=== PATIENT | male | born 1945 | race Caucasian/White ===

== ENCOUNTER 2020-11-04 14:57 | Inpatient (IN) | payer MEDICARE, BC ==
[~2020-11-04] VITALS: Ht 190.5 cm; Wt 98.0 kg
[2020-11-04] MEDS ORDERED: BAYER CHEWABLE81 MG PO (15:10)
[2020-11-04] MEDS ORDERED: VITAMIN D-32000 UNI2 PO (15:11)
[2020-11-04] MEDS ORDERED: BENADRYL25 MG PO (15:11)
[2020-11-04] MEDS ORDERED: COLACE100 MG PO (15:15)
[2020-11-04] MEDS ORDERED: PROSCAR5 MG PO (15:16)
[2020-11-04] MEDS ORDERED: DONEPEZIL HCL5 MG PO (15:16)
[2020-11-04] MEDS ORDERED: IMODIUM2 MG PO (15:17)
[2020-11-04] MEDS ORDERED: LIPITOR40 MG PO (15:18)
[2020-11-04] MEDS ORDERED: LISINOPRIL10 MG PO (15:18)
[2020-11-04] MEDS ORDERED: MIRALAX17 GM PO (15:19)
[2020-11-04] MEDS ORDERED: MILK OF MAGNESI30 ML PO (15:19)
[2020-11-04] MEDS ORDERED: IBUPROFEN200 MG PO (15:20)
[2020-11-04] MEDS ORDERED: MYLANTA / MAALO30 ML GT (15:20)
[2020-11-04] MEDS ORDERED: NIASPAN500 MG (15:21)
[2020-11-04] MEDS ORDERED: NYSTATIN1 PWD TOPICAL (15:22)
[2020-11-04] MEDS ORDERED: SEROQUEL25 MG PO (15:23)
[2020-11-04] MEDS ORDERED: PLAVIX75 MG PO (15:23)
[2020-11-04] MEDS ORDERED: SEROQUEL50 MG (15:24)
[2020-11-04] MEDS ORDERED: TRAZODONE HCL150 MG PO (15:25)
[2020-11-04] MEDS ORDERED: ACETAMINOPHEN500 M1 PO (15:26)
[2020-11-04] MEDS ORDERED: VITAMIN B-121000 MCG PO (15:27)
[2020-11-04] MEDS ORDERED: ZOFRAN4 MG PO (15:27)
[2020-11-04 17:57] VITALS: BP 169/90; BMI 26.9
--- NOTE | 2020-11-04 19:39 | NUR ---
PT ADMITTED TO [facility] TO DR. LOWE CARE FROM [place] IN [place] FOR AGGRESSIVE BEHAVIOR. PT IS CONFUSED AND WANDERING. DNR. COVID VACCINE COMPLETE. SARS-19 SWABBED PER ADMISSION PROTOCAL. NURSE OBTAINED VERBAL CONSULT FROM JEFFREY: ISI ROACH. AMBULATES. POOR HISTORIAN. ADMISSION WEIGHT: 215.6 VITAL SIGNS: T: 97.7, B/P: 169/90, P: 82, R: 22, O2 SAT: 98%.
[2020-11-04 20:00] VITALS: BP 173/92
--- NOTE | 2020-11-04 21:38 | NUR ---
B) Patient is alert and oriented to self, unaware of where he is or what he is doing, wanders to nurses station several times, anxious, restless, I) Administered scheduled medications as ordered, PRN Ativan 0.5 mg IM at 19:41 for anxiety, redirected as needed, R) Mediation compliant, difficult to redirect due to him not understanding the instructions, P) Continue plan of care.
[2020-11-05 06:48] LABS: BASOPHILS 0.2 % (0-2); EOSINOPHILS 2.2 % (0-7); HEMATOCRIT 43.9 % (42.0-54.0); HEMOGLOBIN 15.1 g/dL (13.5-17.5); IMMATURE GRANULOCYTES 0.4 % (0-5); LYMPHOCYTE ABS# 1.75 10x3/uL (1.32-3.57); LYMPHOCYTES 21.8 % (15-50); MCHC 34.4 g/dL (31.0-37.0); MCV 87.3 fL (80.0-100.0); MEAN PLATELET VOLUME 8.6 fL (7.4-10.4); MONOCYTES 8.1 % (2-11); NEUTROPHILS 67.3 % (40-80); PLATELET COUNT 111 10x3/uL (130-400); RBC 5.03 10x6/uL (4.20-6.10); RDW 13.3 % (11.5-14.5)
[2020-11-05 07:47] LABS: ALBUMIN 3.9 g/dL (3.4-5.0); ALKALINE PHOSPHATASE 85 U/L (30-120); ALT (SGPT) 25 U/L (10-68); BILIRUBIN - TOTAL 1.22 mg/dL (0.2-1.3); CALC OSMOLALITY 287 mosm/kg (275-300); CALCIUM 10.1 mg/dL (8.5-10.1); CARBON DIOXIDE 25.9 mmol/L (21.0-32.0); CHLORIDE - SERUM 107 mmol/L (98-107); CHOL - HDL RATIO 2.8 ratio (2.3-4.9); CHOLESTEROL, TOTAL 135 mg/dL (0-200); GLUCOSE 144 mg/dL (74-106); HDL CHOLESTEROL 49 mg/dL (32-96); LDL CHOLESTEROL 59 mg/dL (0-100); LDL-HDL RATIO 1.2 ratio (1.5-3.5); PROTEIN - SERUM 6.5 g/dL (6.4-8.2); SODIUM 142 mmol/L (136-145); THYROID STIMULATING HORMONE 2.54 uIU/mL (0.36-3.74); TRIGLYCERIDE 136 mg/dL (30-200); UREA NITROGEN 17 mg/dL (7-18); eGFR NON AFRICAN AMERICAN 78 mL/min (90-120)
--- NOTE | 2020-11-05 10:09 | NUR ---
SW ATTEMPTED TO CONTACT PT'S CONTACT FOR INFORMATION, ISI ROACH AT [phone] AND THERE WAS NO ANSWER.
[2020-11-05 11:03] VITALS: Ht 190.5 cm; Wt 98.0 kg
[2020-11-05 20:00] VITALS: BP 142/76
--- NOTE | 2020-11-05 20:49 | NUR ---
PT IS ALERT AND ORIENTED TO SELF ONLY. HE IS RECEIVED IN A CHAIR IN THE HALLWAY OUTSIDE THE NURSES STATION. HE IS AGGITATED WITH STAFF. PT IS PACING THE HALLWAY. UNABALE TO REDIRECT. ADMINISTERED PRN HALDOL 2 MG AND ATIVAN 0.5MG IM PER ORDERS. COMPLIANT WITH HS MEDICATIONS. MONITOR FOR SAFETY.
--- NOTE | 2020-11-05 21:15 | NUR ---
PT IS RESTING CALMLY IN HIS BED. NO SIGNS OF DISTRESS NOTED.
--- NOTE | 2020-11-05 22:24 | NUR ---
SPOKE TO PT DAUGHTER/POA. SHE RELATES THAT SHE RECEIVED A CALL THIS MORNING BUT WAS UNABLE TO ANSWER SHE WAS AT WORK. THERE WAS NO VOICEMAIL SO SHE IS UNCERTAIN OF WHAT WAS NEEDED. SHE INQUIRED ABOUT HER FATHERS CURRENT STATUS. UPDATED HER ON PRN MEDICATION THAT HE HAD RECEIVED AND THAT HE WAS CURRENTLY SITTING OUTSIDE THE NURSES STATION. SHE STATED "HIS OF 38 YEARS PASSED IN NOVEMBER OF LAST YEAR AND EVER SINCE HE HAD SEEMED TO TAKE A TURN FOR THE WORST." EDUCATED HER ON PHONE HOUR POLICY AND INFORMED HER TO CALL BACK SUNDAY AND ASK FOR CHIDI.
--- NOTE | 2020-11-06 09:16 | NUR ---
The lab called and said the patient's COVID test is negative.
--- NOTE | 2020-11-06 09:28 | NUR ---
The patient is very confused, he has told the medication nurse multiple times he is going home this am. 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 He has poor short term memory recall and poor insight into his situation. He ambulates, toilets, and feeds himself, but he requires a lot of assistance as he will pull his pants off and he will tracing lathe set up operator the middle of his room. He has not shown any aggression this am. Provide prescribed meds. The patient is compliant with meds. He is not currently having any hallucinations and has not tried to exit the doors. Continue POC.
[2020-11-06 09:51] VITALS: BP 135/57
--- NOTE | 2020-11-06 18:07 | NUR ---
Rec'd this am ambulatory in hallway. He takes his meds whole without diff. He is pleasant and cooperative. He cannot follow any directions. NO behaviors noted this shift.No c/o's.
[2020-11-06 20:00] VITALS: BP 135/75
--- NOTE | 2020-11-06 21:46 | NUR ---
PT IS ALERT AND ORIENTED TO SELF ONLY. HE IS RECEVIED IN THE HALLWAY OUTSIDE THE NURSES STATION SOCIALIZING WITH PEERS. SPEECH IS GARBLED. NO AGGRESSSION NOTED. ABLE TO AMBULATE WITHOUT ASSIST. PT COMPLAINS OF LEFT SHOULDER PAIN. ADMINISTERED PRN TYLENOL 500 MG. COMPLIANT WITH ALL MEDICATIONS. EASY TO REDIRECT. MONITOR FOR SAFETY.
[2020-11-07 02:00] LABS: BILIRUBIN NEGATIVE (NEGATIVE); KETONE NEGATIVE (NEGATIVE); NITRITE NEGATIVE (NEGATIVE); UROBILINOGEN NORMAL mg/dL (< 2)
[2020-11-07 08:00] VITALS: BP 160/76
--- NOTE | 2020-11-07 08:09 | NUR ---
The patient is confused, Miley Reyes T tried to explain to him that she needed to get his weight and it took about ten minutes for her to convince him that it would be ok to get his weight. He ambulates, toilets, and feeds himself. Provide prescribed meds. Monitor for medication compliance. He has not shown any aggression this am, but he does wander. He talks nonsensical. He has poor insight into his situation. Continue POC.
--- NOTE | 2020-11-07 19:35 | NUR ---
RECEIVED AT NURSES STATION. TALKING WITH THIS NURSE. CALM AND COOPERATIVE WITH CARE AND ASSESSMENT. VERY CONFUSED. NO SIGNS OF AGGRESSION. REDIRECT AND REORIENT NEEDED. SITTING IN HALLWAY SOCIALIZING WITH PEERS AT THIS TIME. CONTINUE PLAN OF CARE.
[2020-11-07 21:02] VITALS: BP 143/84
[2020-11-08 08:00] VITALS: BP 151/77
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
--- NOTE | 2020-11-08 17:39 | NUR ---
RECEIVED IN PATIENT ROOM. CALM AND COOPERATIVE WITH ASSESSMENT. WANDERING CONSTANTLY. AGGRESSIVE WITH SHOWER. VERY ANXIOUS AND AGITATED AFTER SHOWER. ACCUSING STAFF OF RAPING HIM IN THE SHOWER. REDIRECT AND REORIENT NEEDED. EATING AT THIS TIME. CONTINUE PLAN OF CARE.
--- NOTE | 2020-11-08 19:40 | NUR ---
RECEIVED IN HALLWAY. SITTING WITH PEERS SOIALIZING. CALM AND COOPERATIVE WITH CARE AND ASSESSMENT. VERY CONFUSED. NO SIGNS OF AGGRESSION. REDIRECT AND REORIENT NEEDED. CONTINUES TO SOCIALIZE WITH PEERS. CONTINUE PLAN OF CARE.
[2020-11-08 22:19] VITALS: BP 146/79
[2020-11-09 08:00] VITALS: BP 150/78
--- NOTE | 2020-11-09 08:30 | NUR ---
RECEIVED IN PATIENT ROOM. CALM AND COOPERATIVE WITH CARE AND ASSESSMENT. NO AGGRESSIVE BEHAVIOR. NO ACCUSATORY STATEMENTS MADE THIS MORNING. REDIRECT AND REORIENT NEEDED. EATING BREAKFAST AT THIS TIME. CONTINUE PLAN OF CARE.
--- NOTE | 2020-11-09 15:12 | PN ---
PATIENT:LEIA ROMAN MEDICAL RECORD: [id number] LOCATION:[facility] [address] ADMISSION DATE: 11/04/20 PROGRESS NOTE DATE OF SERVICE: 11/08/2020 SUBJECTIVE: The patient's case was discussed with staff. He has no new complaint. OBJECTIVE: The patient is not sleeping well. He is easily agitated and at times difficult to redirect. He has limited insight about his situation. He has not been aggressive, but I do not think that is related to any change in his underlying condition, but is rather associated with the skill with which the nursing staff is handling him and his almost constant redirection and observation. ASSESSMENT: Dementia. PLAN: I am going to treat the patient with a scheduled dose of Geodon. His long-term prognosis is guarded. TRANSINT:[id number] Voice Confirmation ID: [id number] DOCUMENT ID: [id number] TA LOWE MD at 1512 CC: [id number] DICTATION DATE: 11/08/20 162 SORTER LUMBER STRAIGHTENER: 11/08/20 2259 ADM IN [id number] [place] [address]
--- NOTE | 2020-11-09 19:20 | NUR ---
RECEIVED IN HALLWAY, SITTING IN A CHAIR SOCAILIZING WITH A PEER. VERY CONFUSED. CALM AND COOPERATIVE WITH CARE AND ASESSMENT. NO SIGNS OF AGGRESSION. REDIRECT AND REORIENT NEEDED. CONTINUES TO SIT CALMLY IN DAYROOM. CONTINUE PLAN OF CARE.
[2020-11-09 19:30] VITALS: BP 130/80
--- NOTE | 2020-11-10 08:39 | NUR ---
Nutrition Reassessment/Follow-up: Eating well. Diet: Regular PO intake: 94% avg x 9 meals Wt: 217# (11/07); 215# (11/04) Last BM: 11/09 No new labs Meds noted: vit D, vit B12 Est needs: 6019-1281 kcal/day (25-30 kcal/kg IBW) 90-105 g protein/day (1-1.2 g/kg IBW) 8846-3645 mL H2O/day (1 mL/kcal) or per MD -RD will follow up within 7 days.
--- NOTE | 2020-11-10 08:45 | NUR ---
RECEIVED IN PATIENT ROOM. WALKING AROUND. CALM AND COOPERATIVE WITH CARE AND ASSESSMENT. NO AGGRESSION. REDIRECT AND REORIENT NEEDED. EATING BREAKFAST AT THIS TIME. CONTINUE PLAN OF CARE.
[2020-11-10 09:19] VITALS: BP 131/82
--- NOTE | 2020-11-10 13:46 | PN ---
PATIENT:LEIA ROMAN MEDICAL RECORD: [id number] LOCATION:EDIL[facility] [address] ADMISSION DATE: 11/04/20 PROGRESS NOTE DATE OF SERVICE: 11/09/2020 SUBJECTIVE: The patient's case was discussed with staff. He has no new complaint. OBJECTIVE: The patient denies intent to harm himself or others. He is sleeping and eating well. ASSESSMENT: Dementia. PLAN: The patient will be maintained on current medicines, which I have reviewed. At this point, he does not appear to be excessively sedated. TRANSINT:[id number] Voice Confirmation ID: [id number] DOCUMENT ID: [id number] TA LOWE MD at 1346 CC: [id number] DICTATION DATE: 11/09/20 1547 CENTRIFUGAL EXTRACTOR OPERATOR: 11/09/20 221 ADM IN [facility] [address] [place] [address]
[2020-11-10 21:30] VITALS: BP 165/81
--- NOTE | 2020-11-10 21:56 | NUR ---
ALERT AND ORIENTED TO SELF ONLY. HAS POOR INSIGHT INTO HIS SITUATION. HE IS ABLE TO AMBULATE WITHOUT ASSIST. HE IS VERY CONFUSED AND CANNOT FOLLOW SIMPLE DIRECTIONS. HE PACES AROUND THE HALLS AIMLESSLY. COMPLIANT WITH ALL MEDICATIONS. MONITOR FOR SAFETY.
[2020-11-11 08:00] VITALS: BP 157/87
--- NOTE | 2020-11-11 10:58 | PN ---
PATIENT:LEIA ROMAN MEDICAL RECORD: [id number] LOCATION:[facility] [address] ADMISSION DATE: 11/04/20 PROGRESS NOTE DATE OF SERVICE: 11/10/2020 SUBJECTIVE: The patient's case was discussed with staff. He has no new complaint. OBJECTIVE: The patient is in good behavioral control. He is quite impaired cognitively, but has not been aggressive in any particular way. ASSESSMENT: Dementia. PLAN: Current medicines and therapies have been reviewed. I am going to increase the patient's Klonopin slightly. TRANSINT:[id number] Voice Confirmation ID: [id number] DOCUMENT ID: [id number] TA LOWE MD at 1058 CC: [id number] DICTATION DATE: 11/10/20 152 CRITICAL CARE TECHNICIAN: 11/10/20 1527 ADM IN [id number] [place] [address]
--- NOTE | 2020-11-11 12:25 | NUR ---
PT CONTINUES TO WANDER AROUND THE UNIT. PT IS DIFFICULT TO REDIRECT DUE TO INABILITY TO UNDERSTAND EDUCATION. PT SHOWS NO INSIGHT OR RETAINING OF EDUCTION OR REDIRECTION. PT SEEMS VERY TIRED BUT WILL NOT STAY IN ROOM. NO AGGRESSION NOTED. MEDICATION GIVEN ORDERED. WILL CONTINUE TO MONITOR AND CONTINUE WITH PLAN OF CARE.
[2020-11-11 20:07] VITALS: BP 156/77
--- NOTE | 2020-11-11 21:19 | NUR ---
PT IS ALERT AND ORIENTED TO SELF ONLY. POOR INSIGHT INTO SITUATION. OBSERVED PACING THE HALLS AND ATTEMPTS TO ENTER OTHER PATIENTS ROOMS. PARANOID OF STAFF RELATING THAT HE DOESNT WISH TO HAVE STAFF DO THINGS TO HIM WHILE HE SLEEPS. NEEDED MUCH ENCOURAGEMENT TO OBTAIN VITALS SIGNS. STATES "YOUR GOING TO CUT MY FINGER OFF WITH THAT". ADMINISTERED PRN ATIVAN 0.5 MG PO PER ORDERS. COMPLIANT WITH ALL MEDICATIONS. DIFFICULT TO REDIRECT. MONITOR FOR SAFETY.
--- NOTE | 2020-11-11 22:00 | NUR ---
PT RESTING CALMLY IN BED WITH EYES OPEN. NO SIGNS OF DISTRESS NOTED. WILL CONTINUE TO MONITOR.
--- NOTE | 2020-11-12 15:20 | NUR ---
Rec'd patient this am ambulatory in [facility]. Night staff state that he is sleeping very little and we offer during dayshift for him to lie down but he will lay for about 10 minutes and then he is up. His eyes are very tired looking and very red. He showed 1 episode of aggression this morning when staff were trying to redirect him and have him to sit down and his eyes became larger and he mumbled something to the fact of he "can and will when she leaves" and then was redirected to a chair by the nurse. He has displayed no paranoia behavior this shift. He paces and tries to unlock doors and attempts to go into rooms and is very difficult to redirect. He has very poor insight,,memory and recall. Staff attempts redirection and positive feedback daily for his needs.
[2020-11-12 20:00] VITALS: BP 142/80
--- NOTE | 2020-11-12 22:35 | NUR ---
PATIENT WANDERING AROUND HALLS AND TRYINT TO EXIT SEEK AT THE DOUBLE DOORS BY REHAB. UNIT. AFTER NUMEROUS ATTEMPTS TO REDIRECT PATIENT TO ROOM WITH DIFFICULTY UNDERSTANDING WHAT WE WERE TRYING TO GET HIM TO DO, HALDOL 2 MG PO WAS GIVEN.
[2020-11-13 08:00] VITALS: BP 118/54
--- NOTE | 2020-11-13 09:06 | NUR ---
The patient is awake and he is pleasant and calm, he has poor insight into his situation, he does not know where he is and he does not know the time of day, he is confused, he talks, but it is nonsensical and he says he wants to get out and go to work. Provide prescribed meds. The patient is compliant with meds. He has not shown any aggression. Continue POC.
--- NOTE | 2020-11-13 22:34 | NUR ---
RECEIVED PATIENT ON NURSING UNIT, AT THE BEGINNING OF THE SHIFT HE SEEMED PARANOID AND MODERATELY AGITATED, HE INTIALLY REFUSED HIS MEDS THEN HE TOOK THEM AND WENT TO BED. WILL FOLLOW POC
--- NOTE | 2020-11-14 17:10 | NUR ---
RECEIVED IN HALLWAY OUTSIDE OF NURSES STATION. WANDERING INTO OTHER PATIENTS ROOMS. VERY CONFUSED. RAMBLING AND NOT MAKING ANY SENSE. BECOMES AGITATED WITH REDIRECTION AT TIMES. REFUSED VITAL SIGNS, REFUSED MEDICATIONS, REFUSED TO EAT. PATIENT STATES HIS STOMACH DOESNT WORK AND THAT CANT BE HELPED. REDIRECT AND REORIENT NEEDED. SITTING IN HALLWAY SOCIALIZING WITH OTHER PATIENTS AT THIS TIME. CONTINUE PLAN OF CARE.
--- NOTE | 2020-11-14 20:04 | NUR ---
RECEIVED IN HALLWAY. SITTING IN A CHAIR SOCAILIZING WITH A PEER. VERY CONFUSED. CALM AND COOPERATIVE WITH CARE AND ASSESSMENT. UNABLE TO FOLLOW SIMPLE DIRECTIONS. NO SIGNS OF AGGRESSION. REDIRECT AND REORIENT NEEDED. CONTINUES TO SIT CALMLY IN HALLWAY. CONTINUE PLAN OF CARE.
[2020-11-14 20:47] VITALS: BP 133/97
--- NOTE | 2020-11-15 09:00 | NUR ---
REC'D PT IN HALLWAY BY NURSES STATION. WANDERING INTO OTHER PTS ROOMS. PT IS VERY CONFUSED. RAMBLING AND NOT MAKING ANY SENSE. PT BECOMES AGITATED WITH REDIRECTION AT TIMES. ASSESSMENT COMPLETED. PRESCRIBED MEDS PROVIDED ORDERED. MED COMPLIANT. FALL PRECAUTIONS IN PLACE. WILL CPOC.
--- NOTE | 2020-11-15 15:12 | PN ---
PATIENT:LEIA ROMAN MEDICAL RECORD: [id number] LOCATION:[facility] [address] ADMISSION DATE: 11/04/20 PROGRESS NOTE DATE OF SERVICE: 11/11/2020 SUBJECTIVE: The patient's case was discussed with staff. He has no new complaint. OBJECTIVE: The patient is difficult to redirect. He is having some problems following simple commands. Unfortunately, his dementia is quite advanced despite his age. He will be maintained on current medications. He did sleep better last night than the night before. TRANSINT:[id number] Voice Confirmation ID: [id number] DOCUMENT ID: [id number] TA LOWE MD at 1512 CC: [id number] DICTATION DATE: 11/11/20 1632 MANAGER INVESTIGATIONS: 11/11/20 1653 ADM IN [facility] [address] [place] [address]
--- NOTE | 2020-11-15 19:40 | NUR ---
RECEIVED IN HALLWAY. SITTING IN A CHAIR SOCIALIZING WITH PEERS. VERY CONFUSED. REFUSED VITALS FROM [facility]. UNABLE TO UNDERSTAND SIMPLE INSTRUCTIONS. NO SIGNS OF AGGRESSION. REDIRECT AND REORIENT NEEDED. CONTINUES TO SOCIALIZE WITH PEERS. CONTINUE PLAN OF CARE.
[2020-11-15 20:17] VITALS: BP 139/83
[2020-11-16 08:00] VITALS: BP 132/74
[2020-11-16 08:34] LABS: ANION GAP 12.8 mmol/L (8-16); CALCIUM 10.5 mg/dL (8.5-10.1); CARBON DIOXIDE 27.2 mmol/L (21.0-32.0); CREATININE - SERUM 1.1 mg/dL (0.6-1.3)
--- NOTE | 2020-11-16 14:08 | PN ---
PATIENT:LEIA ROMAN MEDICAL RECORD: [id number] LOCATION:[facility] [address] ADMISSION DATE: 11/04/20 PROGRESS NOTE DATE OF SERVICE: 11/15/2020 SUBJECTIVE: The patient's case was discussed with staff. He has no new complaint. OBJECTIVE: The patient is sleeping reasonably well and has not been significantly agitated today. ASSESSMENT: Dementia. PLAN: The patient's current medicines have been reviewed and will be maintained. I am going to increase the dose of his Aricept slightly. TRANSINT:[id number] Voice Confirmation ID: [id number] DOCUMENT ID: [id number] TA LOWE MD at 1408 CC: [id number] DICTATION DATE: 11/15/20 1549 COMPUTER LANGUAGE CODER: 11/15/20 2317 ADM IN [facility] [address] [place] [address]
--- NOTE | 2020-11-16 14:08 | PN ---
PATIENT:LEIA ROMAN MEDICAL RECORD: [id number] LOCATION:[facility] [address] ADMISSION DATE: 11/04/20 PROGRESS NOTE DATE OF SERVICE: 11/15/2020 SUBJECTIVE: The patient's case was discussed with staff. He has no new complaint. OBJECTIVE: The patient denies intent to harm himself or others. He is tolerating his medicines well. ASSESSMENT: Dementia. PLAN: Current medicines have been reviewed. I am going to increase the dose of his Aricept slightly. TRANSINT:[id number] Voice Confirmation ID: [id number] DOCUMENT ID: [id number] TA LOWE MD at 1408 CC: [id number] DICTATION DATE: 11/15/20 1554 OCCASIONAL CAREGIVER: 11/15/20 2304 ADM IN [id number] [place] [address]
--- NOTE | 2020-11-16 17:27 | NUR ---
RECEIVED PATIENT IN HALLWAY BY NURSES STATION. CALM AND COOPERATIVE WITH ASSESSMENT AT THIS TIME. PRESCRIBED MEDICATIONS PROVIDED ORDERED. MED COMPLIANT AT THIS TIME. PATIENT CAN BECOME EASILY AGITATED UPON REDIRECTION. REDIRECT AND REORIENT NEEDED. WILL CONTINUE PLAN OF CARE.
[2020-11-16 20:00] VITALS: BP 151/83
--- NOTE | 2020-11-16 20:04 | NUR ---
RECEIVED IN BEDROOM. RESTING IN BED WITH EYES OPEN. VERY CONFUSED. CALM AND COOPERATIVE WITH CARE AND ASSESSMENT. UNABLE TO UNDERSTAND SIMPLE DIRECTIONS. NO SIGNS OF AGGRESSION. REDIRECT AND REORIENT NEEDED. CONTINUES TO BE CALM AND COOPERATIVE. CONTINUE PLAN OF CARE.
[2020-11-17 07:59] VITALS: BP 156/73
--- NOTE | 2020-11-17 08:27 | PN ---
PATIENT:LEIA ROMAN MEDICAL RECORD: [id number] LOCATION:[facility] [address] ADMISSION DATE: 11/04/20 PROGRESS NOTE DATE OF SERVICE: 11/16/2020 SUBJECTIVE: The patient's case was discussed with staff. He has no new complaint. OBJECTIVE: The patient denies intent to harm himself or others. He is participating in treatment. He has poor insight about his situation. ASSESSMENT: Dementia. PLAN: The patient will have his gabapentin increased to 100 mg twice daily. I am going to reduce the Klonopin slightly. TRANSINT:[id number] Voice Confirmation ID: [id number] DOCUMENT ID: [id number] TA LOWE MD at 0827 CC: [id number] DICTATION DATE: 11/16/20 1535 AUTO BODY BUILDER APPRENTICE: 11/16/20 2259 ADM IN [address] [place] [address]
--- NOTE | 2020-11-17 08:33 | NUR ---
PT DAUGHTER CALLED WITH [employer] AND WANTED TO SPEAK WITH SOMEONE ABOUT WHAT WAS GOING ON, WHEN HE WAS GOING TO BE ABLE TO LEAVE. NURSE STATED SHE WAS WELCOME TO SPEAK WITH HUMIDIFIER MAINTENANCE WORKER ABOUT DISCHARGING PLANNING. NURSE TRANSFERRED HER TO HUMIDIFIER MAINTENANCE WORKER OFFICE. HUMIDIFIER MAINTENANCE WORKER CALLED STATING FOR PT TO CALL HIS DAUGHTER AFTER BEING UNABLE TO DO SO THIS WEEK. OR LACK OF GETTING AHOLD OF HIM. STAFF MANAGED TO GET PT TO SPEAK WITH DAUGHTER. HE DID NOT UNDERSTAND WHY HE NEEDED TO TALK ON THE PHONE. HE STATED THEY SAID NO PHONE CALLS. PT DID SPEAK WITH HIS DAUGHTER.
--- NOTE | 2020-11-17 10:37 | NUR ---
SW SPOKE TO PT'S DTR, ISI, TO DISCUSS PT'S CONDITION AND BEHAVIORS ON THE UNIT. ISI VOICED CONCERNS OF NOT GETTING TO SPEAK TO HER DAD IN THE EVENING TIME AND NOT GETTING REPORT ON HIS CONDITION. SW GAVE DTR NURSING UNIT NUMBER AND THE BEST TIMES TO CALL HER DAD AND SW ALSO EXPRESSED SHE CAN CALL FOR AN UPDATE AT ANYTIME. ISI VOICED UNDERSTANDING AND APPRECIATION FOR THE CALL.
--- NOTE | 2020-11-17 10:44 | NUR ---
Nutrition Re-Assessment Diet: Regular PO intake: ~46% average x last 9 meals. Varied 0-100%. She appears to have refused several meals on 11/14/20. She ate 100% x 3 meals yesterday. Last BM: 11/09/20 x 8 days now Wt: 217# (11/07/20); Admit Wt: 215# (11/04/20) Meds noted: micro-k, lasix Labs noted: Glu 134(H) Estimated nutrition needs: 1975-2450kcal (20-25kcal/kg), 79-99gms protein (0.8-1gm/kg), 1975-2450mL fluid (or per MD) Nutrition diagnosis: Inadequate energy intake r/t AMS AEB PO intake average <65% over the past 9 meals (varied 0-100%). Goal: -PO intake =/>75% meals and snacks -Meet fluid needs -Weight trend stable DHS -Glucose to trend near WNL Recommendations: -Continue current diet. Will continue to honor food preferences within diet restrictions. -Recommend offer oral nutrition supplements if PO intake <65% of meals. -RD will follow-up within 7 days.
--- NOTE | 2020-11-17 15:11 | NUR ---
Rec'd patient this am ambulatory in [facility]. He is A/O times one to person. He is very confused and impaired judgement and decision making skilles. He cannot follow simplet commands. He mumbles and carries on a conversation that is unknown to the gate shear operator. He has slept this afternoon and has not participated in any group/ activity. He has to be directed and redirected often. Will continue to encourage him to participate.
[2020-11-17 20:00] VITALS: BP 130/81
--- NOTE | 2020-11-18 01:42 | NUR ---
RECEIVED PATIENT ON UNIT, HE IS VERY CONFUSED AND DOES NOT COMPREHEND ANYTHING THAT IS SAID TO HIM. HE IS VERY LABILE AND BECOMES AGITATED VERY QUICKLY, HE WANDERS AROUND THE UNIT. HE INTIALLY REFUSED HIS MEDS BUT WAITED FOR HIM TO CALM DOWN THEN HE TOOK HIS MEDS. WILL FOLLOW POC
[2020-11-18 08:50] VITALS: BP 124/68
--- NOTE | 2020-11-18 08:54 | PN ---
PATIENT:LEIA ROMAN MEDICAL RECORD: [id number] LOCATION:[facility] [address] ADMISSION DATE: 11/04/20 PROGRESS NOTE DATE OF SERVICE: 11/17/2020 SUBJECTIVE: The patient's case was discussed with staff. He has no new complaint. OBJECTIVE: The patient is disorganized with poor insight about his situation. ASSESSMENT: Dementia. PLAN: Supportive and educational interventions were made. The patient has not been sleeping well despite the medications he is taking at bedtime. I am going to increase the dose of his bedtime Neurontin to see if that helps. TRANSINT:[id number] Voice Confirmation ID: [id number] DOCUMENT ID: [id number] TA LOWE MD at 0854 CC: [id number] DICTATION DATE: 11/17/20 170 FIRMWARE ENGINEER: 11/18/20 0116 ADM IN [facility] [address] [id number]
[2020-11-18 10:14] VITALS: BP 124/68
--- NOTE | 2020-11-18 15:37 | NUR ---
Rec'd patient is am sitting out in the hallway. He is Alert, disorientated to place, time, and situation. He is very confused and will easily become aggressive and aggitated when he feels staff is pushing him to do a task or answer an specific questions. He cannot follow simple directions and has impaired decision making. He will take his meds crushed or whole in ice cream most of the time but has refused all meds. He did attend and participate in goup meeting and activities this am. He is difficult to direct or redirect.
[2020-11-18 20:00] VITALS: BP 140/76
--- NOTE | 2020-11-19 02:58 | NUR ---
B) Patient is alert and oriented to self, social with staff and other patients, wanders at times, calm and cooperative. I) Administered scheduled medications as ordered, monitored for safety R) Mediation compliant, sleeping now quietly in his bed, P) Continue plan of care.
[2020-11-19 11:37] VITALS: BP 138/90
--- NOTE | 2020-11-19 12:47 | NUR ---
PT IN ROOM AT THIS TIME. PT ATE LUNCH. CONFUSION NOTED. ALERT TO SELF ONLY. AMBULATES. CAN NOT MAKE ALL NEEDS KNOWN. PT IS SOCIAL WITH PEERS AND STAFF. COMPLIANT WITH MEDS, VITALS AND ASSESSMENTS. PT WANDERS AT TIMES. REDIRECT AND REORIENT NEEDED. NO C/O OF PAIN NOTED. PT CONTS ON DROPELT ISOLATION AWAITING SARS-19 RESULTS. BED ALARM IN PLACE AND ACTIVE. WILL CONT PLAN OF CARE.
[2020-11-19 20:00] VITALS: BP 133/76
--- NOTE | 2020-11-19 21:30 | NUR ---
PT IS ALERT AND ORIENTED TO SELF ONLY. PT CALM AND COOPERATIVE WITH STAFF. SOCIAL WITH PEERS. COMPLIANT WITH ALL MEDICATIONS. EASY TO REDIRECT. PT WAS OFFERED OPTION OF AM OR PM SHOWER AND HE CHOSE TO TAKE A SHOWER IN THE MORNING. NO AGGRESSION NOTED. MONITOR FOR SAFETY.
--- NOTE | 2020-11-20 07:42 | NUR ---
The patient is sitting in the vu he is conversing, but he is nonsensical. He ambulates and feeds himself. He toilets in the sink in someone elses bathroom, he will put his underwear on over his pants. He has poor insight into his situation. He has not shown any aggression, but it is difficult to direct him. Provide prescribed meds. Continue POC.
[2020-11-20 08:14] VITALS: BP 124/71
[2020-11-20 20:00] VITALS: BP 147/75
--- NOTE | 2020-11-20 22:55 | NUR ---
PT IS ALERT AND ORIENTED TO SELF ONLY. CALM AND COOPERATIVE WITH STAFF. FOLLOWS SIMPLE COMMANDS. COMPLIANT WITH ALL MEDICATIONS AND CARE. UNSTEADY GAIT. EASY TO REDIRECT. MONITOR FOR SAFETY.
--- NOTE | 2020-11-21 08:22 | NUR ---
The patient is awake and he is pleasant, he walked a little bit with another patient and it made the other patient happy, but then he walked away and shut the door. Staff checked on him and he is making his bed. He tries to converse, but it is nonsensical. He has poor insight into his situation. He ambulates, toilets, and feeds himself. He is unsteady and he realizes it, he uses the hand rail. Provide prescribed meds. The patient is compliant with meds. Continue POC.
[2020-11-21 09:00] VITALS: BP 136/75
--- NOTE | 2020-11-21 19:28 | NUR ---
RECEIVED IN HALLWAY OUTSIDE OF NURSES STATION. SOCIALIZING WITH PEERS. VERY CONFUSED. CALM AND COOPERATIVE WITH CARE AND ASSESSMENT. NO SIGNS OF AGGRESSION. REDIRECT AND REORIENT NEEDED. CONTINUES TO SOCAILIZE WITH PEERS IN HALLWAY. CONTINUE PLAN OF CARE.
[2020-11-21 21:35] VITALS: BP 126/81
[2020-11-22 10:31] VITALS: BP 122/60
--- NOTE | 2020-11-22 13:41 | PN ---
PATIENT:LEIA ROMAN MEDICAL RECORD: [id number] LOCATION:[facility] [address] ADMISSION DATE: 11/04/20 PROGRESS NOTE DATE OF SERVICE: 11/18/2020 SUBJECTIVE: The patient's case was discussed with staff. He has no new complaint. OBJECTIVE: The patient denies intent to harm himself or others. He is not sleeping well. He is eating well. ASSESSMENT: Dementia. PLAN: The patient will be maintained on current medications with the exception of the Klonopin, which will be increased slightly. TRANSINT:[id number] Voice Confirmation ID: [id number] DOCUMENT ID: [id number] TA LOWE MD at 1341 CC: [id number] DICTATION DATE: 11/18/202012 FEDERAL JUDICIAL LAW CLERK: 11/18/20 2133 ADM IN [facility] [address] [place] [address]
--- NOTE | 2020-11-22 17:45 | NUR ---
RECEIVED IN PATIENT ROOM. SITTING ON SIDE OF BED. CALM AND COOPERATIVE WITH CARE AND ASSESSMENT. NO AGGRESSIVE BEHAVIOR. STILL WANDERS AROUND UNIT. CONFUSED. REDIRECT AND REORIENT NEEDED. EATING DINNER AT THIS TIME. CONTINUE PLAN OF CARE.
--- NOTE | 2020-11-22 21:58 | NUR ---
RECEIVED IN HALLWAY OUTISIDE OF NURSES STATION. SOCIALIZING WITH PEERS. VERY CONFUSED. CALM AND COOPERATIVE WITH CARE AND ASSESSMENT. NO SIGNS OF AGGRESSION. REDIRECT AND REORIENT NEEDED. RESTING IN BED WITH EYES CLOSED AT THIS TIME. CONTINUE PLAN OF CARE.
[2020-11-22 22:55] VITALS: BP 131/60
[2020-11-23 08:00] VITALS: BP 143/76
--- NOTE | 2020-11-23 13:17 | PN ---
PATIENT:LEIA ROMAN MEDICAL RECORD: [id number] LOCATION:[facility] [address] ADMISSION DATE: 11/04/20 PROGRESS NOTE DATE OF SERVICE: 11/22/2020 SUBJECTIVE: The patient's case was discussed with staff. He has no new complaint. OBJECTIVE: The patient denies intent to harm himself or others. He is tolerating his medicines well. ASSESSMENT: Dementia. PLAN: Current medicines have been reviewed. I am going to increase his scheduled dose of gabapentin slightly. TRANSINT:[id number] Voice Confirmation ID: [id number] DOCUMENT ID: [id number] TA LOWE MD at 1317 CC: [id number] DICTATION DATE: 11/22/20 1615 RECONNAISSANCE CREWMEMBER: 11/22/20 1738 ADM IN [place] [id number] [place] [address]
[2020-11-23 16:00] LABS: SARS-CoV-2 ANTIGEN NEGATIVE- SARS-COV-2 (NEGATIVE)
--- NOTE | 2020-11-23 16:15 | NUR ---
PT WILL DISCHARGE BACK TO [facility]. SW ATTEMPTED PHONE CALL TO ISI MORALES, AND PHONE WENT TO BUSY ITZEL. PT'S FACILITY WILL MAKE FOLLOW UP APPOINTMENT FOR THREE WEEKS DUE TO THEM WANTING TO MAKE SURE HE HAS THE TRANSPORTATION NEEDED. MEDICATIONS WILL BE CALLED IN TO [facility] PER FACILITY REQUEST.
[2020-11-23] MEDS ORDERED: DONEPEZIL HCL10 MG PO (16:26)
[2020-11-23] MEDS ORDERED: TRAZODONE HCL100 MG PO (16:27)
[2020-11-23] MEDS ORDERED: GEODON20 MG PO (16:27)
[2020-11-23] MEDS ORDERED: NEURONTIN 300300 MG PO (16:27)
[2020-11-23] MEDS ORDERED: GABAPENTIN100 MG PO (16:27)
--- NOTE | 2020-11-23 17:50 | NUR ---
RECEIVED IN PATIENT ROOM. SITTING ON SIDE OF BED. CALM AND COOPERATIVE WITH CARE AND ASSESSMENT. WANDERS AROUND. CONFUSED. REDIRECT AND REORIENT NEEDED. EATING DINNER AT THIS TIME. CONTINUE PLAN OF CARE.
[2020-11-23 20:00] VITALS: BP 131/70
--- NOTE | 2020-11-23 20:52 | NUR ---
RECEIVED IN HALLWAY. WALKING AROUND UNIT. CALM AND COOPERATIVE WITH CARE AND ASSESSMENT. VERY CONFUSED. NO SIGNS OF AGGRESSION. REDIORECT AND REORIENT NEEDED. RESTING QUIETLY IN BED AT THIS TIME. CONTINUE PLAN OF CARE.
--- NOTE | 2020-11-24 08:34 | PN ---
PATIENT:LEIA ROMAN MEDICAL RECORD: [id number] LOCATION:[facility] [address] ADMISSION DATE: 11/04/20 PROGRESS NOTE DATE OF SERVICE: 11/23/2020 SUBJECTIVE: The patient's case was discussed with staff. He has no new complaint. OBJECTIVE: The patient is in good behavioral control with limited insight about his condition. He is eating and sleeping well. ASSESSMENT: Dementia. PLAN: The patient will be transitioned out of the hospital and back to the prison tomorrow. His long-term prognosis is guarded. TRANSINT:[id number] Voice Confirmation ID: [id number] DOCUMENT ID: [id number] TA LOWE MD at 0834 CC: [id number] DICTATION DATE: 11/23/20 1621 EPIC ANESTHESIA ANALYST: 11/23/20 2313 ADM IN [facility] [address] [place] [address]
--- NOTE | 2020-11-24 11:30 | NUR ---
PATIENT DISCHARGED TO [facility] IN [place]. TRANSPORTED VIA [facility]. DISCHARGE PAPERWORK FAXED AND HARD COPY SENT WITH PATIENT. PERSONAL BELONGINGS SENT WITH PATIENT.
--- NOTE | 2020-11-24 14:23 | NUR ---
Nutrition Re-Assessment Diet: Regular PO intake: ~83% average x last 9 meals Last BM: 11/24/20 Wt: 215.5# (11/21/20); Admit Wt: 215# (11/04/20) Meds and labs reviewed. Estimated nutrition needs and nutrition diagnosis remain unchanged from initial nutrition assessment at this time. Currently meeting nutrition goals. Recommendations/Interventions -Recommend continue current diet. Will continue to honor food preferences. -RD will continue to monitor PO intake and wt trend. -RD will follow-up within 7 days.
--- NOTE | 2020-11-24 16:12 | NUR ---
SW LEFT VOICEMAIL ON PT'S DTR, OVIDIO SNOWDEN. ALERTED OF PT DISCHARGE. SW ATTEMPTED TO CALL PT'S DTR EARLIER AND PHONE CALL WENT TO BUSY SIGNAL.
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
== END 2020-11-24 11:30 | DRG 57 ==
LOC: D.PSYCH 14:57
PROVIDERS: Family Medicine; ADMIT Psychiatry & Neurology Psychiatry; ATTEND Psychiatry & Neurology Psychiatry
DX: G30.9 Alzheimer's disease, unspecified (principal); F02.81 Dementia in other diseases classified elsewhere, unspecified severity, with behavioral disturbance; I25.10 Atherosclerotic heart disease of native coronary artery without angina pectoris; I10 Essential (primary) hypertension; E78.5 Hyperlipidemia, unspecified; N40.0 Benign prostatic hyperplasia without lower urinary tract symptoms; E53.8 Deficiency of other specified B group vitamins; E55.9 Vitamin D deficiency, unspecified; M79.89 Other specified soft tissue disorders

== ENCOUNTER 2021-03-16 14:41 | Inpatient (IN) | payer MEDICARE, BC ==
[~2021-03-16] VITALS: Ht 190.5 cm; Wt 90.7 kg
[~2021-03-16 14:41] MED LIST: ACETAMINOPHEN500 M1 PO; BAYER CHEWABLE81 MG PO; BENADRYL25 MG PO; COLACE100 MG PO; DONEPEZIL HCL10 MG PO; DONEPEZIL HCL5 MG PO; GABAPENTIN100 MG PO; GEODON20 MG PO; IBUPROFEN200 MG PO; IMODIUM2 MG PO; LIPITOR40 MG PO; LISINOPRIL10 MG PO; MILK OF MAGNESI30 ML PO; MIRALAX17 GM PO; MYLANTA / MAALO30 ML GT; NEURONTIN 300300 MG PO; NIASPAN500 MG; NYSTATIN1 PWD TOPICAL; PLAVIX75 MG PO; PROSCAR5 MG PO; SEROQUEL25 MG PO; SEROQUEL50 MG; TRAZODONE HCL100 MG PO; TRAZODONE HCL150 MG PO; VITAMIN B-121000 MCG PO; VITAMIN D-32000 UNI2 PO; ZOFRAN4 MG PO
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
[2021-03-16] MEDS ORDERED: BENADRYL25 MG PO (16:38)
[2021-03-16] MEDS ORDERED: GABAPENTIN300 MG PO (16:39)
[2021-03-16] MEDS ORDERED: IMODIUM2 MG PO ×2 (16:53→16:54)
--- NOTE | 2021-03-16 16:59 | PSY ---
PATIENT NAME:LEIA ROMAN MEDICAL RECORD: [id number] : 49 LOCATION:[facility] [address] ADMISSION DATE: 03/16/21 ACCOUNT: [id number] PSYCHIATRIC EVALUATION DATE OF EVALUATION: 03/16/21 IDENTIFYING DATA: The patient is 75 years old and he is admitted to the hospital on a voluntary basis. CHIEF COMPLAINT: Aggression. HISTORY OF PRESENT ILLNESS: The patient comes to us from a [facility] in [place]. He is aggressive and fighting with the staff there. This is almost the identical presentation he had 4 months ago when he presented here. He is not able to provide any useful information. He is polite, he is cooperative, but he is talking about things that are circumstantial and not related to the information I need or the questions I am asking. PAST MEDICAL HISTORY: Significant for benign prostatic hypertrophy, hypertension and hyperlipidemia. PAST PSYCHIATRIC HISTORY: Significant for a longstanding diagnosis of dementia and this is his second hospitalization for behavior problems associated with that condition. FAMILY HISTORY: Unknown. ALLERGIES: No known drug allergies. CURRENT MEDICATIONS: Please see the admissions MAR. SOCIAL HISTORY: The patient is . He does have adult children involved with his care. He apparently worked in agriculture and has no history of drug or alcohol abuse. MENTAL STATUS EXAMINATION: The patient is awake, alert and oriented to person, but not to place, time or situation. His mood is angry. His affect is constricted. Thought processes are circumstantial. Memory, concentration and abstraction abilities are impaired and he denies that he would seek to harm himself or others as well as psychotic symptoms. ASSESSMENT: AXIS I: Major neurocognitive disorder of the Alzheimer's type. AXIS II: None. AXIS III: Hyperlipidemia, hypertension. AXIS IV: Moderate stressors. AXIS V: Global assessment of functioning is 30. PLAN: At this time, the patient is admitted to the hospital secondary to aggressive behavior associated with a dementing illness. He will be comprehensively evaluated and treated with both mood stabilizing and memory enhancing medications. His long-term prognosis is guarded. TRANSINT:[id number] Voice Confirmation ID: [id number] DOCUMENT ID: [id number] TA LOWE MD at 2631 CC: [id number] DICTATION DATE: 03/16/21 1632 EC TEACHER: 03/16/21 1649 ADM IN [facility] [address] [place] [id number]
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
--- NOTE | 2021-03-16 17:05 | NUR ---
SITTING QUIETLY ON SOFA OBSERVING PEERS.LAB HERETO DRAW BLOOD.HE COMPLIED WITH LAB .
[2021-03-16 17:14] VITALS: BP 151/83; BMI 25.3
[2021-03-16 17:19] LABS: BASOPHILS 0.6 % (0-2); EOSINOPHILS 3.2 % (0-7); HEMATOCRIT 41.5 % (42.0-54.0); HEMOGLOBIN 14.6 g/dL (13.5-17.5); LYMPHOCYTES 22.5 % (15-50); MCH 29.8 pg (26.0-34.0); MCHC 35.1 g/dL (31.0-37.0); MEAN PLATELET VOLUME 6.4 fL (7.4-10.4); MONOCYTES 8.1 % (2-11); NEUTROPHILS 65.6 % (40-80); RBC 4.88 10x6/uL (4.20-6.10); RDW 13.3 % (11.5-14.5); WBC 8.3 10x3/uL (4.8-10.8)
[2021-03-16 17:34] LABS: PLATELET COUNT 178 10x3/uL (130-400)
[2021-03-16 18:08] LABS: ALBUMIN 4.1 g/dL (3.4-5.0); ALKALINE PHOSPHATASE 83 U/L (30-120); ALT (SGPT) 24 U/L (10-68); BILIRUBIN - TOTAL 0.44 mg/dL (0.2-1.3); CALC OSMOLALITY 280 mosm/kg (275-300); CALCIUM 9.8 mg/dL (8.5-10.1); CHLORIDE - SERUM 104 mmol/L (98-107); CHOL - HDL RATIO 2.9 ratio (2.3-4.9); CHOLESTEROL, TOTAL 120 mg/dL (0-200); GLUCOSE 123 mg/dL (74-106); HDL CHOLESTEROL 41 mg/dL (32-96); LDL CHOLESTEROL 43 mg/dL (0-100); PROTEIN - SERUM 6.6 g/dL (6.4-8.2); SODIUM 140 mmol/L (136-145); THYROID STIMULATING HORMONE 1.17 uIU/mL (0.36-3.74); TRIGLYCERIDE 181 mg/dL (30-200); UREA NITROGEN 15 mg/dL (7-18); eGFR NON AFRICAN AMERICAN 78 mL/min (90-120)
--- NOTE | 2021-03-16 19:00 | NUR ---
PT IS ALERT AND ORIENTED TO SELF ONLY. POOR INSIGHT INTO HIS SITUATION. RECEIVED IN THE HALLWAY OUTSIDE THE NURSES STATION. WITHDRAWN. COOPERATIVE WITH STAFF. COMPLIANT WITH ALL MEDICATIONS. EASY TO REDIRECT. MONITOR FOR SAFETY.
[2021-03-16 20:00] VITALS: BP 152/81
--- NOTE | 2021-03-16 21:25 | NUR ---
PT IS RESTLESS AND AGITATED WITH CARE. AGGRESSIVE WITH ADL'S. UNABLE TO REDIRECT. ADMINISTERED PRN HALDOL 2 MG AND ATIVAN 0.5 MG IM PER ORDERS FOR UNSAFE PSYCHOTIC BEHAVIORS AND ANXIETY. MONITOR FOR SAFETY.
--- NOTE | 2021-03-16 21:55 | NUR ---
PT STILL RESTLESS. THREATENING STAFF. ASSISTED PT INTO BED AND COVERED WITH A WARM BLANKET. BED ALARM ON AND WORKING. MONITOR FOR SAFETY.
[2021-03-17 07:15] LABS: RAPID PLASMA REAGIN Non Reactive (Non Reactive)
[2021-03-17 07:24] LABS: SARS-CoV-2 ANTIGEN NEGATIVE- SARS-COV-2 (NEGATIVE)
--- NOTE | 2021-03-17 09:25 | NUR ---
family called to checkon pt. passcode given. update given.
[2021-03-17 10:16] VITALS: BP 132/78
[2021-03-17 13:55] VITALS: Ht 190.5 cm; Wt 90.7 kg
--- NOTE | 2021-03-17 18:03 | NUR ---
AMBULATORY.WAS RECEIVED THIS AM IN HALLWAY AT NURSES STATION.IS ORIENTED TO SELF ONLY.HAS NOT EXPRESSED ANY ANGER TODAY.COMPLIANT WITH STAFF AND MEDS.WILL CONTINUE WITH CURRENT PLAN OF CARE,MONITOR FOR CHANGES AND SAFETY.
[2021-03-17 20:00] VITALS: BP 119/69
--- NOTE | 2021-03-17 23:12 | NUR ---
PT IS ALERT AND ORIENTED TO SELF. POOR INSIGHT INTO HIS SITUATION. NO AGGRESSION NOTED BUT SOME AGITATION WITH REDIRECTION. COMPLIANT WITH ALL MEDICATIONS. REQUIRES CONSTANT REDIRECTION. PROVIDED HS SNACK. MONITOR FOR SAFETY.
[2021-03-18 13:37] VITALS: BP 135/72
--- NOTE | 2021-03-18 16:52 | NUR ---
pt sitting in chair with eyes closed. pt is alert and oriented to person only. redirect and reorient as needed. pt can be very resistant to redirection. pt is restless at times. pt can not make needs known. ambulates with somewhat unsteady. assistance at times. pt is compliant with crushed meds. pt can be easily agitated with redirection with care. chair alarm in place and active. will cont plan of care.
[2021-03-18 20:00] VITALS: BP 120/70
--- NOTE | 2021-03-19 02:38 | NUR ---
B)RECEIVED PATIENT SITTING OUTSIDE THE NURSE'S STATION. ORIENTED TO SELF ONLY. WITHDRAWN AROUND PEERS. MINIMAL INTERACTION WITH STAFF. DOES NOT INITIATE CONVERSATON. UNABLE TO FOLLOW TOPIC OF CONVERSATION. I)ADMINISTER MEDS AND MONITOR COMPLIANCE. REORIENT NEEDED. R)MED COMPLIANT. POOR REORIENTATION. APPEARS DISINTERESTED. P)CONTINUE POC AND PROVIDE SAFE ENVIRONMENT.
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
[2021-03-19 08:00] VITALS: BP 147/80
--- NOTE | 2021-03-19 08:34 | NUR ---
Received patient sitting in hallway by nurses station. Patient is confused and has little to no insight into his situation at this time. Patient is awake and alert to person only. Patient appears to be withdrawn at times. Patient can become aggressive with redirection. No aggression noted at this time. Redirect and reorient as needed. Fall precautions in place for safety. Will continue plan of care.
[2021-03-19 08:49] LABS: BILIRUBIN NEGATIVE (NEGATIVE); KETONE NEGATIVE mg/dL (< 1+); NITRITE NEGATIVE (NEGATIVE); PH 5.5 (5.0-8.0); UROBILINOGEN 2 mg/dL (< 2); WHITE CELLS - URINE 3 HPF (0-1)
[2021-03-19 20:00] VITALS: BP 143/87
--- NOTE | 2021-03-20 03:44 | NUR ---
B)RECEIVED PATIENT SITTING OUTSIDE THE NURSE'S STATION. ORIENTED TO SELF ONLY. PT IS DISORGANIZED AND DIFFICULT TO INTERACT WITH. WITHDRAWN. PT BECOMES FOCUSED ON ONE THING. DISTRACTION IS UNSUCCESFUL AND DOES NOT RESPOND TO VERBAL REDIRECTION. PT BECOMES MORE AGITATED WHEN AN ATTEMPT IS MADE TO REFOCUS TO THE CURRENT TOPIC. RESTLESS AND WILL NOT STAY IN HIS BED. I)ADMINISTER MEDS AND MONITOR COMPLIANCE. REORIENT WITH REALITY BASED INFORMATION. R)PATIENT TOOK A FEW OF HIS PILLS WHOLE AND THEN RELATED HE DID NOT WANT ANYMORE THAT HE IS FULL. CRUSHED THE REST AND ATTEMPTED TO GIVE IN APPLESAUCE AND PATIENT RELATED IT WAS TO TART. ADDED SUGAR AND HE REFUSED THE APPLESAUCE. PUT MEDICATION IN PUDDING AND PATIENT TOOK MEDICATION. POOR REORIENTATIION DUE TO IMPAIRED ABILITY TO SEPARATE REALITY FROM FANTASY. P)CONTINUE POC AND PROVIDE SAFE ENVIRONMENT.
[2021-03-20 08:00] VITALS: BP 124/83
--- NOTE | 2021-03-20 17:57 | NUR ---
ALERT, CALM, CONFUSED, COOPERATIVE, NO AGGRESSION NOTED. DIFFICULTY UNDERSTANDING INSTRUCTIONS. MEDS ADMIN PER ORDERS WITH COMPLETE MED COMPLIANCE NOTED. NO ADVERSE REACTION TO MEDS. CONT POC OUTLINED, MONITORING FOR INCREASED AGGRESSION.
--- NOTE | 2021-03-20 20:12 | NUR ---
RECEIVED IN HALLWAY OUTSIDE OF NURSES STATION, SOCIALIZING WITH A PEER. CALM AND COOPERATIVE WITH CARE AND ASSESSMENT. NO SIGNS OF AGGRESSION. REDIRECT AND REORIENT NEEDED. CONTINUES TO SIT CALMLY IN HALLWAY SOCIALIZING WITH A PEER. CONTINUE PLAN OF CARE.
[2021-03-20 22:25] VITALS: BP 139/79
[2021-03-21 08:00] VITALS: BP 136/78
--- NOTE | 2021-03-21 15:15 | NUR ---
RECEIVED IN HALLWAY OUTSIDE OF NURSES STATION. SITTING IN RECLINER. CALM AND COOPERATIVE WITH CARE AND ASSESSMENT. NO AGGRESSIVE BEHAVIOR. REDIRECT AND REORIENT NEEDED. SITTING IN GROUP AT THIS TIME. CONTINUE PLAN OF CARE.
--- NOTE | 2021-03-21 20:11 | NUR ---
RECEIVED IN HALLWAY OUTSIDE OF NURSES STATION. SITTING CALMLY IN A RECLINER WITH PEERS AT HIS SIDE. CALM AND COOPERATIVE WITH CARE AND ASSESSMENT. NO SIGNS OF AGGRESSION. REDIRECT AND REORIENT NEEDED. WALKING TO BEDROOM WITH MHT AT THIS TIME. CONTINUE PLAN OF CARE.
[2021-03-21 22:38] VITALS: BP 128/74
[2021-03-22 08:00] VITALS: BP 134/75
--- NOTE | 2021-03-22 10:47 | NUR ---
REC'D PT IN HALLWAY BY NURSES STATION. AWAKE AND ALERT TO PERSON ONLY. CALM AND COOPERATIVE WITH ASSESSMENT. PRESCRIBED MEDS PROVIDED ORDERED. MED COMPLIANT. PT IS RESTLESS AT TIMES. REDIRECT AND REORIENT NEEDED. FALL PRECAUTIONS IN PLACE. WILL CPOC.
--- NOTE | 2021-03-22 16:47 | PN ---
PATIENT:LEIA ROMAN MEDICAL RECORD: [id number] LOCATION:[facility] [address] ADMISSION DATE: 03/16/21 PROGRESS NOTE DATE OF SERVICE: 03/21/2021 SUBJECTIVE: The patient's case was discussed with staff. He has no new complaint. OBJECTIVE: The patient denies intent to harm himself or others. He is tolerating his medicines well. He is eating and sleeping well. ASSESSMENT: Dementia. PLAN: I anticipate the patient can be transitioned out of the hospital soon if this level of improvement continues. TRANSINT:[id number] Voice Confirmation ID: [id number] DOCUMENT ID: [id number] TA LOWE MD at 1647 CC: [id number] DICTATION DATE: 03/21/21 164 CASH POSTING SPECIALIST: 03/22/21 0025 ADM IN [facility] [address] [place] [address]
--- NOTE | 2021-03-22 19:30 | NUR ---
RECEIVED IN HALLWAY OUTSIDE OF NURSES STATION. CALM AND COOPERATIVE WITH CARE AND ASSESSMENT. NO SIGNS OF AGGRESSION. CONFUSED. REDIRECT AND REORIENT NEEDED. CONTINUES TO SIT CALMLY WITH PEERS IN HALLWAY. CONTINUE PLAN OF CARE.
[2021-03-22 22:15] VITALS: BP 147/81
[2021-03-23 08:44] VITALS: BP 142/81
--- NOTE | 2021-03-23 10:59 | PN ---
PATIENT:LEIA ROMAN MEDICAL RECORD: [id number] LOCATION:[facility] [address] ADMISSION DATE: 03/16/21 PROGRESS NOTE DATE OF SERVICE: 03/22/2021 SUBJECTIVE: The patient's case was discussed with staff. He has no new complaint. OBJECTIVE: The patient is in good behavioral control with limited insight about his situation. ASSESSMENT: Dementia. PLAN: Supportive and educational interventions were made. Long-term prognosis is guarded. Brief supportive and educational interventions were provided. TRANSINT:[id number] Voice Confirmation ID: [id number] DOCUMENT ID: [id number] TA LOWE MD at 1059 CC: [id number] DICTATION DATE: 03/22/21 170 CANCER GENETIC COUNSELOR: 03/22/21 1940 ADM IN [place] [id number] [place] [id number]
--- NOTE | 2021-03-23 11:29 | NUR ---
PATIENT REFUSED PT, BECAME VERY AGGITATED.
--- NOTE | 2021-03-23 16:09 | NUR ---
Nutrition Re-Assessment Diet: Regular PO Intake: ~84% average x last 9 meals Last BM: 03/22/21 Wt: 198.8# (03/20/21); Admit Wt: 202.2# (03/16/21) Meds noted: miralax Labs noted: Glu 123(H), A1c 6.2(H) Patient appears to remain at low nutrition risk at this time. Please consult dietitian if further MNT is medically indicated and/or desired by MD. RD will continue to monitor for nutrition risk factors DHS. RD will follow-up within 7 days.
--- NOTE | 2021-03-23 17:50 | NUR ---
Rec'd patient this am sitting up in a w/c in the hallway. He is a/o to person and is very confused. He is withdrawn and will sit by himself. He can not follow any conversation and does not comprehend any directions. He is med compliant and took meds crushed in food. He has demononstrated no aggressive behavior to staff or patients. He sat in group but did not participate.
[2021-03-23 20:00] VITALS: BP 119/76
--- NOTE | 2021-03-24 03:21 | NUR ---
B)RECEIVED PATIENT SITTING OUTSIDE THE NURSE'S STATION. ORIENTED TO SELF ONLY. DIFFICULT TO UNDERSTAND DUE TO PATIENT SPEAKS IN AN EXTREMELY LOW TONE. RESPONSES ARE NOT CONGRUENT WITH CONVERSATION. SUSPICIOUS. WHEN TRYING TO TALK WITH PATIENT HE WILL QUESTION WHAT YOU ARE SAYING OR BECOMES AGITATED. I)ADMINISTER MEDS AND MONITOR COMPLIANCE. REORIENT NEEDED. R)SUSPICIOUS AND RELUCTANT TO TAKE MEDS. WILL LOOK AT YOU IF ASKING WHAT ARE YOU TRYING TO PULL ON ME. WILL RELATE "I DON'T WANT THAT. I DON'T LIKE IT." WILL EVENTUALLY TAKE HIS MEDS AFTER ALOT OF PROMPTING, POOR REORIENATION DUE TO IMPAIRED ABILITY TO COMPREHEND, PROCESS AND RETAIN INFORMATION. P)CONTINUE POC AND PROVIDE SAFE ENVIRONMENT.
[2021-03-24 09:09] VITALS: BP 146/78
--- NOTE | 2021-03-24 14:21 | PN ---
PATIENT:LEIA ROMAN MEDICAL RECORD: [id number] LOCATION:[facility] [address] ADMISSION DATE: 03/16/21 PROGRESS NOTE DATE OF SERVICE: 03/23/2021 SUBJECTIVE: The patient's case was discussed with staff. He has no new complaint. OBJECTIVE: The patient denies that he would seek to harm himself or others. He is impaired cognitively, but has been cooperative. He is eating well and sleeping well. His current medicines have been reviewed and will be maintained. TRANSINT:[id number] Voice Confirmation ID: [id number] DOCUMENT ID: [id number] TA LOWE MD at 1421 CC: [id number] DICTATION DATE: 03/23/[address]ER: 03/23/21 1830 ADM IN [facility] [address] [place] [address]
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
--- NOTE | 2021-03-24 19:28 | NUR ---
B)RECEIVED PATIENT SITTING OUTSIDE THE NURSE'S STATION. ORIENTED TO SELF ONLY. STARES AT OTHERS HOWEVER IS NOT INTERACTIVE. UNABLE TO FOLLOW TOPIC OF CONVERSATION AND RESPONDS WITH INAPPROPRIATE ANSWERS. SUSPICIOUS AND WITHDRAWN. I)ADMINISTER MEDS AND MONITOR COMPLIANCE. REORIENT NEEDED. R)SUSPICOUS HOWEVER WILL TAKE MEDICATIONS WITH ALOT OF PROMPTING. POOR REORIENTATION DUE TO IMPAIRED ABILITY TO COMPREHEND, PROCESS AND RETAIN INFORMATION. DIFFICULTY WITH GENERAL CONVERSATION AND VERBAL INSTRUCTIONS. P)CONTINUE POC AND PROVIDE SAFE ENVIRONMENT.
[2021-03-24 20:00] VITALS: BP 155/98
[2021-03-25 08:00] VITALS: BP 150/88
--- NOTE | 2021-03-25 09:07 | NUR ---
pt sitting on couch a this time. pt is calm and cooperative. confused. alert to person only. disoriented to place, time and situation. no insight noted to situation. ambulates very slowly with assistance. compliant with meds, vitals and assessments. redirect and reorient as needed. no behaviors noted. pt is easy to redirect. bed alarm in place and active. will cont plan of care.
[2021-03-25 21:11] VITALS: BP 138/87
--- NOTE | 2021-03-26 02:44 | NUR ---
B) Patient is alert an doriented to self, calm and cooperative this shift, I) Administered scheduled medications as ordered, monitored for safet R) Medication compliant social with peers, quiet P) Continue plan of care.
[2021-03-26 08:34] VITALS: BP 124/77
--- NOTE | 2021-03-26 10:02 | NUR ---
RECEIVED IN HALLWAY OUTSIDE OF NURSES STATION. SITTING QUIETLY IN CHAIR. CALM AND COOPERATIVE WITH CARE AND ASSESSMENT. PLEASANTLY CONFUSED. NO AGGRESSIVE BEHAVIOR. REDIRECT AND REORIENT NEEDED. SITTING IN DAYROOM WITH PEERS AT THIS TIME. CONTINUE PLAN OF CARE.
[2021-03-26 21:09] VITALS: BP 152/77
--- NOTE | 2021-03-27 03:15 | NUR ---
B) Patient is alert and oriented to self, confused and wanders at times, I) Adminsitered scheduled medications as ordered, monitored for safety R) Medication compliant, follows instructions, P) Continue plan of care,
[2021-03-27 09:19] VITALS: BP 120/72
--- NOTE | 2021-03-27 11:27 | NUR ---
Patient rec'd this am sitting in a chair. He is a/o to person only. He is very confused. He is med complicant today and took his meds crushed and placed in food.He has sat and watched TV and napped this am. He has sat with the group but has napped. He is not directable or redirectable. He cannot follow simple directions. He has demonstrated no aggressive behavior this am. He is confused and has been calm..
--- NOTE | 2021-03-27 19:38 | NUR ---
RECEIVED IN HALLWAY OUTSIDE OF NURSES STATION. SITTING CALMLY WITH PEERS AT HIS SIDE. CALM AND COOPERATIVE WITH CARE AND ASSESSMENT. NO SIGNS OF AGGRESSION. REDIRECT AND REORIENT NEEDED. CONTINUES TO SIT CALMLY IN HALLWAY. CONTINUE PLAN OF CARE.
[2021-03-27 21:45] VITALS: BP 134/77
[2021-03-28 08:00] VITALS: BP 124/76
--- NOTE | 2021-03-28 10:22 | NUR ---
REC'D PT IN HALLWAY BY THE NURSES STATION. AWAKE AND ALERT TO PERSON ONLY. CALM AND COOPERATIVE WITH ASSESSMENT. PT IS CONFUSED. PT HAS LITTLE TO NO INSIGHT INTO HIS SITUATION. NO BEHAVIORS NOTED. REDIRECT AND REORIENT NEEDED. PRESCRIBED MEDICATIONS PROVIDED ORDERED. MED COMPLIANT. REDIRECT AND REORIENT NEEDED. FALL PRECAUTIONS IN PLACE. WILL CPOC.
--- NOTE | 2021-03-28 14:11 | PN ---
PATIENT:LEIA ROMAN MEDICAL RECORD: [id number] LOCATION:[facility] ADMISSION DATE: 03/16/21 PROGRESS NOTE DATE OF SERVICE: 03/24/2021 SUBJECTIVE: The patient's case was discussed with staff. He has no new complaint. OBJECTIVE: The patient has been very agitated and aggressive with various staff members today. He is difficult to redirect. He cannot adequately explain or discuss why he is agitated. This is clearly a change in his behavior. ASSESSMENT: Dementia. PLAN: I am going to change the patient from Geodon to Haldol to assist with the behavioral problems. He will be monitored for clinical changes. His long-term prognosis is guarded. TRANSINT:[id number] Voice Confirmation ID: [id number] DOCUMENT ID: [id number] TA LOWE MD at 1411 CC: [id number] DICTATION DATE: 03/24/21 1508 AWS DEVELOPER: 03/24/21 1812 ADM IN [id number] [place] [address]
[2021-03-28] MEDS ORDERED: LISINOPRIL10 MG PO (16:16)
[2021-03-28] MEDS ORDERED: KLONOPIN0.5 MG PO (16:17)
[2021-03-28] MEDS ORDERED: VITAMIN B-12500 MCG PO (16:18)
[2021-03-28 20:00] VITALS: BP 138/83
--- NOTE | 2021-03-28 20:32 | NUR ---
RECEIVED IN HALLWAY OUTSIDE OF NURSES STATION. VERY CONFUSED. CALM AND COOPERATIVE WITH CARE AND ASSESSMENT. NO SIGNS OF AGGRESSION. REDIRECT AND REORIENT NEEDED. CONTINUES TO SIT QUIETLY IN HALLWAY. CONTINUE PLAN OF CARE.
[2021-03-29 08:00] VITALS: BP 138/72
--- NOTE | 2021-03-29 08:27 | NUR ---
REC'D PT SITTING IN HALLWAY WITH PEERS. AWAKE AND ALERT TO PERSON ONLY. CALM AND COOPERATIVE WITH ASSESSMENT. NO BEHAVIORS NOTED. MOOD IS CALM. REDIRECT AND REORIENT NEEDED. FALL PRECAUTIONS IN PLACE. WILL CPOC.
--- NOTE | 2021-03-29 08:41 | PN ---
PATIENT:LEIA ROMAN MEDICAL RECORD: [id number] LOCATION:[facility] ADMISSION DATE: 03/16/21 PROGRESS NOTE DATE OF SERVICE: 03/28/2021 SUBJECTIVE: The patient's case was discussed with staff. He has no new complaint. OBJECTIVE: The patient is in good behavioral control. He has had no aggressive behaviors. He is oriented to person only. ASSESSMENT: Dementia. PLAN: The patient will be transitioned out of the hospital tomorrow. His long-term prognosis is guarded. He will be living in a custodial. TRANSINT:[id number] Voice Confirmation ID: [id number] DOCUMENT ID: [id number] TA LOWE MD at 0841 CC: [id number] DICTATION DATE: 03/28/21 1612 NETWORK FIELD ENGINEER: 03/28/21 1855 ADM IN [facility] [address] [place] [address]
--- NOTE | 2021-03-29 12:40 | NUR ---
MEDICATIONS CALLED IN TO [facility]. SPOKE WITH HUGO GREENE.
--- NOTE | 2021-03-29 13:14 | NUR ---
NUTRITION RE-ASSESSMENT: COMMENTS: Patient eating well for meals and snacks. Patient present with a good appetite and is able to feed himself per MD note. No new labs recorded since 03/16. DIET: Regular Diet PO INTAKE: 88% avg for last 9 meals 81% avg for last 3 snacks WEIGHT: 03/20-198.8 lbs 03/29-199.5 lbs BM: x 1 on 03/29 SIG MEDS: Vit B12, Miralax, Vit D, Lipitor SIG LABS: None recorded since 03/16 NUTRITION DIAGNOSIS: Patient continues at low nutritional risk at this time ESTIMATED NEEDS (Based on Actual Body Weight): Kcal:4249-5660(25-30 kcal/kg ABW) Protein:88-106 g (1.0-1.2 g/kg) Fluids:4791-3677(1 cc/kcal) or Per MD RECOMMENDATIONS: 1) Continue Regular Diet as tolerated 2) Offer nutritional supplements if PO intake becomes <50% avg for meals RD to follow up within 7 days
--- NOTE | 2021-03-29 13:30 | NUR ---
PT DISCHARGED TO [facility]. ALL DISCHARGE PAPERWORK REVIEWED AND COPY SENT WITH [facility] AT THIS TIME. ALL BELONGINGS SENT WITH PT AT THIS TIME. NO S/SX OF DISTRESS NOTED.
--- NOTE | 2021-03-30 14:41 | DS ---
PATIENT:LEIA ROMAN :49 MEDICAL RECORD: [id number] DISCHARGE SUMMARY ADMISSION DATE: 03/16/21 DISCHARGE DATE: 03/29/21 IDENTIFYING DATA: The patient is 75 years old and he was admitted to the hospital on a voluntary basis. CHIEF COMPLAINT: Aggression. HISTORY OF PRESENT ILLNESS: The patient is referred to us by a snf in [place]. He has been aggressive and fighting with the staff there. This is an almost identical presentation to when he was admitted here 4 months ago. The patient himself is impaired. He is polite, cooperative, but only oriented to person and not able to provide anything in the way of useful information. HOSPITAL COURSE: The patient was admitted to the hospital and evaluated from both a medical, psychological, and social standpoint. He was treated with both mood stabilizing and memory enhancing medications. He showed improvement in his cognition through the course of the hospitalization and his behavior similarly improved. He was subsequently transitioned back to the snf. DISCHARGE DIAGNOSES: AXIS I: Major neurocognitive disorder of the Alzheimer's type with behavioral disturbances. AXIS II: None. AXIS III: Hyperlipidemia and hypertension. AXIS IV: Moderate stressors. AXIS V: Global Assessment of Functioning is 35. PLAN: At the time of discharge, the patient was in good behavioral control and had no active thoughts of harming himself or others. He was tolerating his medicines well. His long-term prognosis is guarded. TRANSINT:[id number] Voice Confirmation ID: [id number] DOCUMENT ID: [id number] TA LOWE MD at 1441 CC: [id number] DICTATION DATE: 03/29/21 1459 PATROL DRIVER: 03/30/21 0543 DIS IN 03/29/21 [id number] [place] [address]
== END 2021-03-29 13:30 | disposition home or self-care (01) | DRG 57 ==
LOC: D.PSYCH 14:41
PROVIDERS: ADMIT Psychiatry & Neurology Psychiatry; ATTEND Psychiatry & Neurology Psychiatry
DX: G30.9 Alzheimer's disease, unspecified (principal); F02.80 Dementia in other diseases classified elsewhere, unspecified severity, without behavioral disturbance, psychotic disturbance, mood disturbance, and anxiety; I25.10 Atherosclerotic heart disease of native coronary artery without angina pectoris; I10 Essential (primary) hypertension; N40.0 Benign prostatic hyperplasia without lower urinary tract symptoms; E78.5 Hyperlipidemia, unspecified